=== PATIENT | female | born 1965 | race Caucasian/White ===

== ENCOUNTER 2017-07-04 12:25 | Emergency (ER) | payer OTHER, MEDICAID ==
[2017-07-04 12:34] VITALS: BMI 32.5
--- NOTE | 2017-07-04 13:05 | DR.AMS ---
HPI - Time Seen Time seen: 01:00 - Complaint Cheif Complaint Doctors Comments: Patient was enroute to dialysis when the transport team thought that might be having a stroke because she was not responding to him. He said her pupils were not equal not responding as usual. She no history of prior stroke. Chief Complaint:: [facility] TO TRANSPORT PT AND STATES UPON TAKING PT TO DIALYSIS AND PT BEGAN AMS, NOT ACTING RIGHT ......AND THEY THOUGHT SHE WAS ACTING RIGHT .. Self Treatment fo Chief Complaint: UPON ARRIVAL PT IS ALERT AND ORIENTED AND SHE ANSWERS QUESTIONS APPROPRIATE NO DISTRESS NOTES.... - Source History Provided: Patient, EMS - Mode of Arrival Mode of Arrival: EMS - Timing Onset of Chief Complaint: 07/04/17 PMH - PMH Past Medical History: No Past Medical History: Diabetes, Dialysis, Hypertension, Renal Disease Past Surgical History: Yes Surgical History: Hysterectomy, Ortho Surgery Past Surgical History Comment: RIGHT SHIELDS - Family History History of Family Medical Conditions: No Family Medical History: Diabetes Mellitus, Cancer, [place], Coronary Artery Disease - Social History Does patient currently use any type of tobacco product: No Have you used tobacco products in the last 12 months: No Type of Tobacco Use: None Does any household member use tobacco: No Alcohol Use: None Do you use any recreational Drugs:: No Lives Where: [facility] - infectious screening In the last 2 months have you had wt loss of >10#?: NO Have you had fever, night sweats or hemotysis?: No Have you traveled outside the country in the last 6 months?: No Isolation: Standard ROS - Review of Systems Eyes: No Symptoms Reported ENTM: No Symptoms Reported Respiratoy: No Symptoms Reported Cardiovascular: No Symptoms Reported Gastrointestinal/Abdominal: No Symptoms Reported Genitourinary: No Symptoms Reported Neurological: No Symptoms Reported Musculoskeletal: No Symptoms Reported Integumentary: No Symptoms Reported Hematologic/Lymphatic: No Symptoms Reported Endocrine: No Symptoms Reported Psychiatric: No Symptoms Reported All Other Systems: Reviewed and Negative PE - Vitals Vital Signs: Pulse Resp BP BP BP Pulse Ox 07/04/17 12:26 70 20 151/83 98 11/27/16 14:14 231/107 231/107 11/27/16 13:49 240/123 - General Limitations: No Limitations General Appearance: Alert, In No Apparent Distress - Head Head Exam: Normal Inspection, Atraumatic - Eyes Eye exam: Normal Appearance Pupils: Regular, Round: Bilateral - ENT ENT Exam: Normal Exam, Normal Oropharynx External Ear Exam: Normal External Inspection TM/Canal Exam: Bilateral Normal Nose Exam: Normal Nose Exam Mouth Exam: Normal Inspection Throat Exam: Normal Inspection - Neck Neck Exam: Normal Inspection - Chest Chest Inspection: Normal Inspection - Respiratory Respiratory Exam: Normal Lung Sounds Bilat Respiratory Exam: Bilateral Clear to Auscultation - Cardiovascular Cardiovascular Exam: Regular Rate, Normal Rhythm - Abdominal Exam Abdominal Exam: Normal Inspection Abdominal Tenderness: negative: RUQ, RLQ, LUQ, LLQ, Epigastrium, Suprapubic, Diffuse, Mild, Moderate, Severe, Other - Extremities Extremities Exam: Normal Inspection, Other (BKA right lower extremity) - Back Back Exam: Normal Inspection. negative: (R) CVA Tenderness, (L) CVA Tenderness - Neurological Neurological Exam: Alert, Oriented X3, CN II-XII Intact Patient Oriented To: Person Speech: Fluid Speech - Psychological Psychiatric Exam: Normal Affect - Skin Skin Exam: Warm, Dry, Intact Course - Treatment Treatment: Patient evaluated, responded appropriately to questions, pupils equal and reactive, no deviation of tongue speeck appropriate. - Diagnosis Discharge Problem: Dialysis patient - Discharge Plan Condition: Stable - Follow ups/Referrals Follow ups/Referrals: DERRICK HUNTER [Primary Care Provider] - 3 days - Instructions
[2017-07-04 13:12] VITALS: BP 107/55
== END 2017-07-04 13:12 | disposition home or self-care (01) ==
LOC: ER 12:25
DX: Z99.2 Dependence on renal dialysis (principal)
CPT/HCPCS: 99281

== ENCOUNTER → 2018-02-13 | Outpatient (CLI) | payer OTHER, MEDICAID | LOC: LAB 16:10 | PROVIDERS: ATTEND General Practice | DX: S91.302A Unspecified open wound, left foot, initial encounter (principal); X58.XXXA Exposure to other specified factors, initial encounter; B95.62 Methicillin resistant Staphylococcus aureus infection as the cause of diseases classified elsewhere | CPT/HCPCS: 87070; 87075; 87077; 87186 ==

== ENCOUNTER 2018-07-22 17:04 | Inpatient (IN) ==
--- NOTE | 2018-07-22 17:44 | DR.GENAD ---
HPI Time Seen Time Seen by Provider: 07/22/18 17:12 Complaint/Symptoms Chief Complaint Doctors Comments: Patient was getting her dialysis, had SOB; she was transferred to the ED for further evaluation. She has been on dialysis for one year. PMH PMH Past Medical History: Anemia, Anxiety, CHF, Coronary Artery Disease, Diabetes, Dyslipidemia, GERD, Hypertension, Kidney Stones and Seizures Past Surgical History: Yes Surgical History: Hysterectomy and Ortho Surgery Family History Family Medical History: Diabetes Mellitus, Cancer, [place] and Coronary Artery Disease Social History Do you use any recreational Drugs:: No PE Vital Signs Vitals: Temperature 99.2 F Pulse Rate [Apical] 69 Pulse Rate 69 Respiratory Rate 15 Blood Pressure [Right Arm] 103/57 Blood Pressure [Left Arm] 231/107 Blood Pressure 126/62 O2 Sat by Pulse Oximetry 95 General Limitations: No Limitations General Appearance: Alert and In No Apparent Distress Head Head Exam: Normal Inspection and Atraumatic Eyes Eye exam: Normal Appearance, PERRL and EOMI ENT ENT Exam: Normal Exam and Normal Oropharynx External Ear Exam: Normal External Inspection TM/Canal Exam: Bilateral: Normal Nose Exam: Normal Nose Exam and Sinus Tenderness Mouth Exam: Normal Inspection Throat Exam: Normal Inspection Neck Neck Exam: Normal Inspection and Full ROM Chest Chest Inspection: Normal Inspection and Symmetric Chest Wall Rise Respiratory Respiratory Exam: Normal Lung Sounds Bilat Respiratory Exam: Bilateral: Clear to Auscultation Cardiovascular Cardiovascular Exam: Regular Rate and Normal Rhythm Abdominal Exam Abdominal Exam: Normal Inspection, Normal Bowel Sounds and Soft Extremities Extremities Exam: Normal Inspection and Full ROM Back Back Exam: Normal Inspection and Full ROM Neurologic Neurological Exam: Alert, Oriented X3 and CN II-XII Intact Psychiatric Psychiatric Exam: Normal Affect and Normal Mood Skin Skin Exam: Warm and Dry COURSE Consultation Called: 19:45 Consultation Comments: agreed to admit for further evaluation and treatment ROR Labs Reviewed Laboratory Results Reviewed?: Yes Result Diagrams: 07/22/18 17:43 07/22/18 17:43 Laboratory: WBC 6.1 X10^3/uL (3.6-10.0) 07/22/18 17:43 RBC 2.49 X10^6/uL (3.5-5.4) L 07/22/18 17:43 Hgb 7.9 g/dL (12.0-16.0) L 07/22/18 17:43 Hct 23.0 % (36.0-47.0) L 07/22/18 17:43 MCV 92.4 fL (80.0-100.0) 07/22/18 17:43 MCH 31.6 pg (27.0-34.0) 07/22/18 17:43 MCHC 34.2 g/dL (33.0-35.0) 07/22/18 17:43 RDW 16.3 % (11.6-16.5) 07/22/18 17:43 Plt Count 228 X10^3/uL (150.0-450.0) 07/22/18 17:43 Plt Count Comment Adequate (ADEQUATE) 07/22/18 17:43 MPV 7.7 fL (7.4-11.0) 07/22/18 17:43 Neut % (Auto) 71.2 % (42.0-75.0) 07/22/18 17:43 Lymph % (Auto) 22.7 % (21.0-51.0) 07/22/18 17:43 [place] % (Auto) 5.2 % (0.0-13.0) 07/22/18 17:43 Eos % (Auto) 0.6 % (0.9-2.9) L 07/22/18 17:43 Baso % (Auto) 0.3 % (0.2-1.0) 07/22/18 17:43 Neut # (Auto) 4.3 x10^3/uL (2.2-4.8) 07/22/18 17:43 Lymph # (Auto) 1.4 X10^3/uL (1.3-2.9) 07/22/18 17:43 [place] # (Auto) 0.3 x10^3/uL (0.3-0.8) 07/22/18 17:43 Eos # (Auto) 0.0 x10^3/uL (0.0-0.2) 07/22/18 17:43 Baso # (Auto) 0.0 X10^3/uL (0.0-0.1) 07/22/18 17:43 Absolute Nucleated RBC 0.0 /100WBC 07/22/18 17:43 Plt Morphology Comment Normal (NORMAL) 07/22/18 17:43 RBC Morphology Normal (NORMAL) 07/22/18 17:43 INR Target Range - 07/22/18 17:43 INR 1.19 (0.8-1.3) 07/22/18 17:43 APTT 47.4 SECONDS (22.9-36.5) H 07/22/18 17:43 PTT Comment - 07/22/18 17:43 D-Dimer 2020 ng/mL (0-400) H* 07/22/18 17:43 Sodium 138 mmol/L (136-145) 07/22/18 17:43 Corrected Sodium 139 mmol/L (136-145) 07/22/18 17:43 Potassium 3.4 mmol/L (3.5-5.1) L 07/22/18 17:43 Chloride 98 mmol/L (98-107) 07/22/18 17:43 Carbon Dioxide 31.5 mmol/L (21-32) 07/22/18 17:43 BUN 24 mg/dL (7-18) H 07/22/18 17:43 Creatinine 2.34 mg/dL (0.55-1.02) H 07/22/18 17:43 Est GFR (MDRD) Af Amer 28 (>60) L 07/22/18 17:43 Est GFR (MDRD) Non-Af 23 (>60) L 07/22/18 17:43 Glucose 136 mg/dL (65-99) H 07/22/18 17:43 Calcium 7.1 mg/dL (8.5-10.1) L 07/22/18 17:43 Corrected Calcium 9.0 mg/dL (8.5-10.1) 07/22/18 17:43 Total Bilirubin 0.80 mg/dL (0.2-1.0) 07/22/18 17:43 AST 33 Units/L (15-37) 07/22/18 17:43 ALT 20 Units/L (12-78) 07/22/18 17:43 Alkaline Phosphatase 484 Units/L (46-116) H 07/22/18 17:43 Creatine Kinase 154 Units/L (26-192) 07/22/18 17:43 CK-MB (CK-2) 6.6 ng/mL (0-4.0) H* 07/22/18 17:43 CK/CKMB % Calc 4.3 % (<4) 07/22/18 17:43 Troponin I < 0.02 ng/mL (0-1.5) 07/22/18 17:43 Total Protein 6.3 g/dL (6.4-8.2) L 07/22/18 17:43 Albumin 1.6 g/dL (3.4-5.0) L 07/22/18 17:43 Globulin 4.7 g/dL (2.5-4.5) H 07/22/18 17:43 Albumin/Globulin Ratio 0.3 Ratio (1.1-2.1) L 07/22/18 17:43 Other Results Comments: CT Brain: No acute intraparenchymal hemorrhage or mass can be identified. No extra-axial fluid collections are seen. No alteration in the attenuation of the brain parenchyma can be identified to suggest acute or sub- acute ischemic change. The ventricles, sulci, and cisterns demonstrate an appearance consistent with a mild degree of generalized atrophy. Patchy areas of decreased attenuation within the periventricular, subcortical, and subinsular white matter suggest changes or chronic small vessel ischemic disease. A remote infarct is seen within the right centrum semiovale. If symptoms or clinical concern persist recommend continued follow-up for further evaluation: Impression: No acute intracranial process can be identified. Mild generalized atrophy with findings consistent with changes of chronic small vessel ischemic disease. Remote right-sided infarct. Chest: Right-sided pleural effusion with sub-segmental atelectasis in the right base; otherwise no focal infiltrate can be identified. Cardiomegaly that appear stable compared to prior examination. Diagnosis Discharge Problem: Altered mental status, Dialysis patient, D-dimer, elevated
[2018-07-22 17:51] LABS: BASOPHILS % (AUTO) 0.3 % (0.2-1.0); EOSINOPHILS % (AUTO) 0.6 % (0.9-2.9); HEMOGLOBIN 7.9 g/dL (12.0-16.0); LYMPHOCYTES # (AUTO) 1.4 X10^3/uL (1.3-2.9); LYMPHOCYTES % (AUTO) 22.7 % (21.0-51.0); MEAN CORPUSCULAR HEMOGLOBIN 31.6 pg (27.0-34.0); MEAN CORPUSCULAR HGB CONC 34.2 g/dL (33.0-35.0); MEAN CORPUSCULAR VOLUME 92.4 fL (80.0-100.0); MEAN PLATELET VOLUME 7.7 fL (7.4-11.0); MONOCYTES # (AUTO) 0.3 x10^3/uL (0.3-0.8); MONOCYTES % (AUTO) 5.2 % (0.0-13.0); NEUTROPHILS # (AUTO) 4.3 x10^3/uL (2.2-4.8); NEUTROPHILS % (AUTO) 71.2 % (42.0-75.0); PLATELET COUNT 228 X10^3/uL (150.0-450.0); RED BLOOD COUNT 2.49 X10^6/uL (3.5-5.4); RED CELL DISTRIBUTION WIDTH 16.3 % (11.6-16.5); WHITE BLOOD COUNT 6.1 X10^3/uL (3.6-10.0)
[2018-07-22 17:59] LABS: PLATELET MORPHOLOGY COMMENT NORMAL (NORMAL)
[2018-07-22] MEDS ORDERED: PROVENTIL NEB TX 0.083% 2.5MG/ 3ML NEB ONE (17:59)
[2018-07-22 18:08] LABS: BLOOD UREA NITROGEN 24 mg/dL (7-18); CALCIUM 7.1 mg/dL (8.5-10.1); CARBON DIOXIDE 31.5 mmol/L (21-32); CHLORIDE 98 mmol/L (98-107); COR NA(FOR HYPERGLY) 139 mmol/L (136-145); CREATININE 2.34 mg/dL (0.55-1.02); SODIUM 138 mmol/L (136-145); TROPONIN I < 0.02 ng/mL (0-1.5); eGFR NON BLACK RACES 23 (>60)
[2018-07-22 18:32] LABS: ALANINE AMINOTRANSFERASE 20 Units/L (12-78); ALBUMIN 1.6 g/dL (3.4-5.0); ALKALINE PHOSPHATASE 484 Units/L (46-116); ASPARTATE AMINO TRANSFERASE 33 Units/L (15-37); CKMB % 4.3 % (<4); CREATINE KINASE 154 Units/L (26-192); TOTAL PROTEIN 6.3 g/dL (6.4-8.2)
[2018-07-22 18:33] LABS: CREATINE KINASE MB 6.6 ng/mL (0-4.0)
--- NOTE | 2018-07-22 18:40 | CT ---
HISTORY: Altered mental status Study: CT head Comparison: None Technique: Serial axial images were obtained from the skullbase to the vertex without infusion of IV contrast. Coronal and sagittal reformatted images were also submitted. Findings: The ventricles, sulci, and cisterns demonstrate an appearance consistent with a mild degree of genera lized atrophy. Patchy areas of decreased attenuation within the periventricular, subcortical, and sub insular white matter suggest changes of chronic small vessel ischemic disease. A remote infarct is se en involving the right centrum semiovale. The visualized paranasal sinuses are grossly unremarkable i n appearance. If symptoms or clinical concern persist recommend continued follow-up for further evalu ation. IMPRESSION: No evidence of acute intracranial abnormality is appreciated. Mild generalized atrophy findings consistent with changes of chronic small vessel ischemic disease. Remote infarct involving the right centrum semiovale. Reported By:
--- NOTE | 2018-07-22 18:49 | RAD ---
HISTORY: Altered level of consciousness, confusion Study: Single-view chest Comparison: 06/05/2018 Findings: The trachea is midline. The cardiac silhouette is enlarged with a tortuous thoracic aorta. Pacing de vice overlying the left chest is observed with leads stable in position. A right-sided pleural effus ion with associated subsegmental atelectasis is again observed not significantly changed compared to prior examination. Otherwise, no focal infiltrate can be identified. The bony thorax is unremarkable . IMPRESSION: Right-sided pleural effusion with subsegmental atelectasis in the right base. Otherwise, no focal inf iltrate can be identified. Cardiomegaly that appear stable compared to prior examination. Reported By:
[2018-07-22] MEDS ORDERED: ROBITUSSIN DM PO PRN (20:04)
[2018-07-22] MEDS ORDERED: ULTRAM PO PRN (20:04)
[2018-07-22] MEDS ORDERED: AMBIEN PO PRN (20:04)
[2018-07-22] MEDS ORDERED: PHENERGAN INJ 25 MG IV PRN (20:04)
[2018-07-22] MEDS ORDERED: TYLENOL 325 MG TAB PO PRN (20:04)
[2018-07-22] MEDS ORDERED: MORPHINE SULFATE INJ 2 MG INJ IVP PRN (20:04)
[2018-07-22] MEDS ORDERED: ZOFRAN TAB 4 MG SL PRN (20:04)
[2018-07-22] MEDS: NS 1000 ML 1,000 ML IV SCH (20:42)
[2018-07-22] MEDS ORDERED: PEPTO-BISMOL ORAL SUSP BTL PO PRN (20:53)
[2018-07-22] MEDS ORDERED: PATIENT'S HOME MEDICATION (Insulin Aspart [Novolog Insulin 10 Ml Vial] 1 UNIT) SUBCUT PRN (20:53)
[2018-07-22] MEDS ORDERED: CLONAZEPAM PO SCH (21:00)
[2018-07-22] MEDS ORDERED: HumuLIN R SUBCUT PRN (22:20)
[2018-07-22 22:54] VITALS: BMI 23.9
[2018-07-23 05:24] LABS: ALANINE AMINOTRANSFERASE 20 Units/L (12-78); ALBUMIN 1.4 g/dL (3.4-5.0); ALKALINE PHOSPHATASE 448 Units/L (46-116); ASPARTATE AMINO TRANSFERASE 38 Units/L (15-37); BLOOD UREA NITROGEN 32 mg/dL (7-18); CALCIUM 7.2 mg/dL (8.5-10.1); CARBON DIOXIDE 27.1 mmol/L (21-32); CHLORIDE 100 mmol/L (98-107); COR CA(FOR HYPOALB) 9.3 mg/dL (8.5-10.1); CREATININE 2.69 mg/dL (0.55-1.02); SODIUM 138 mmol/L (136-145); TOTAL PROTEIN 5.8 g/dL (6.4-8.2); eGFR NON BLACK RACES 20 (>60)
[2018-07-23 05:31] LABS: BASOPHILS % (AUTO) 0.6 % (0.2-1.0); EOSINOPHILS % (AUTO) 0.1 % (0.9-2.9); HEMATOCRIT 22.2 % (36.0-47.0); HEMOGLOBIN 7.6 g/dL (12.0-16.0); LYMPHOCYTES # (AUTO) 1.6 X10^3/uL (1.3-2.9); LYMPHOCYTES % (AUTO) 24.9 % (21.0-51.0); MEAN CORPUSCULAR HEMOGLOBIN 31.4 pg (27.0-34.0); MEAN CORPUSCULAR VOLUME 92.2 fL (80.0-100.0); MEAN PLATELET VOLUME 8.5 fL (7.4-11.0); MONOCYTES # (AUTO) 0.6 x10^3/uL (0.3-0.8); MONOCYTES % (AUTO) 8.3 % (0.0-13.0); NEUTROPHILS # (AUTO) 4.4 x10^3/uL (2.2-4.8); NEUTROPHILS % (AUTO) 66.1 % (42.0-75.0); PLATELET COUNT 186 X10^3/uL (150.0-450.0); RED BLOOD COUNT 2.41 X10^6/uL (3.5-5.4); RED CELL DISTRIBUTION WIDTH 15.6 % (11.6-16.5); WHITE BLOOD COUNT 6.6 X10^3/uL (3.6-10.0)
[2018-07-23] MEDS ORDERED: DUONEB 0.5 MG/3 MG NEB SCH (06:00)
[2018-07-23 06:14] LABS: HYPOCHROMASIA SLIGHT; PLATELET MORPHOLOGY COMMENT NORMAL (NORMAL)
[2018-07-23] MEDS: NEURONTIN TAB 600 MG PO SCH ×4 (06:16→21:24)
[2018-07-23 06:33] LABS: ABG BASE EXCESS 10.2 mmol/L (-2.0-2.0)
[2018-07-23] MEDS: NS 1000 ML 1,000 ML IV SCH ×2 (06:33→21:47)
[2018-07-23 06:34] LABS: ABG HCO3 35.6 mmol/L (22-26); FRACTIONATED INSPIRED OXYGEN 31
[2018-07-23] MEDS: NORVASC TAB 10 MG PO SCH (08:34)
[2018-07-23] MEDS: KLONOPIN TAB 0.5 MG PO SCH ×3 (08:34→21:23)
[2018-07-23] MEDS: CATAPRES TAB 0.2 MG PO SCH ×3 (08:34→21:23)
[2018-07-23] MEDS: PROTONIX TAB 40 MG PO SCH (08:35)
[2018-07-23] MEDS ORDERED: AMLODIPINE BESYLATE 10 MG PO SCH (09:00)
[2018-07-23] MEDS: DUONEB 0.5 MG/3 MG NEB SCH ×4 (10:00→20:10)
[2018-07-23] MEDS ORDERED: DUONEB 0.5 MG/3 MG ONE (10:08)
[2018-07-23] MEDS ORDERED: ATIVAN TAB 1 MG PO PRN (10:30)
[2018-07-23] MEDS ORDERED: MILK OF MAGNESIA PO PRN (10:30)
[2018-07-23] MEDS ORDERED: BENADRYL CAP/TAB 25 MG PO PRN (10:30)
[2018-07-23] MEDS ORDERED: DULCOLAX TAB EC 5 MG PO PRN (10:30)
[2018-07-23] MEDS ORDERED: NORCO 10/325 TAB PO PRN (10:30)
[2018-07-23] MEDS ORDERED: CARBOXYMETHYLCELLULOSE SODIUM OP PRN (10:30)
[2018-07-23] MEDS ORDERED: PATIENT'S HOME MEDICATION (Ferrous Sulfate [Ferrous Sulfate] 325 MG) PO SCH (10:45)
[2018-07-23] MEDS ORDERED: SEVELAMER CARBONATE 800 MG PO SCH (10:45)
[2018-07-23] MEDS ORDERED: [UNRECOGNIZED DRUG - OTHER] PO SCH (10:45)
[2018-07-23] MEDS ORDERED: VIT B COMPLEX PO SCH (10:45)
[2018-07-23] MEDS: MINOXIDIL PO SCH ×2 (11:26→21:23)
[2018-07-23] MEDS: VITAMIN C PO SCH (11:27)
[2018-07-23] MEDS: COLACE CAP 100 MG PO SCH ×2 (11:27→21:23)
[2018-07-23] MEDS: RANEXA PO SCH ×2 (11:27→21:23)
[2018-07-23] MEDS: KEPPRA TAB 500 MG PO SCH ×2 (11:27→21:23)
[2018-07-23] MEDS: LYRICA CAP 100 MG PO SCH (11:27)
[2018-07-23] MEDS: RENAGEL PO SCH ×2 (13:55→18:00)
[2018-07-23] MEDS ORDERED: PROVENTIL NEB TX 0.083% 2.5MG/ 3ML NEB PRN (14:51)
--- NOTE | 2018-07-23 19:19 | DR.H&P ---
H&P - History & Physical for Day of: H&P Date: 07/22/18 - Chief Complaint Chief Complaint: WEAKNESS, SHORT OF BREATH - History of Present Illness History of Present Illness: IS A 53 YEAR OLD RESIDENT OF [facility] IN [place], [place]. SHE PRESENTED TO THE ER FROM DIALYSIS WITH REPORTS OF WEAKNESS AND SHORTNESS OF BREATH. SHE REPORTS BECOMING SHORT OF BREATH WHILE SHE WAS RECEIVING DIALYSIS. SHE DENIES COUGH OR FEVER. PAST MEDICAL HISTORY INCLCUDES ANEMIA, ANXIETY, CHF, CAD, DM, DYSLIPIDEMIA, GERD, HTN, KIDNEY DISEASE, SEIZURES. ON ARRIVAL, VITALS WERE 99.2-69-20-97%-126/62. LABS WERE OBTAINED. ABNORMAL LAB VALUES INCLUDE THE FOLLOWING: RBC 2.49, HGB 7.9, HCT 23.0, D-DIMER 2020, POTASSIUM 3.4, BUN 24, CREATININE 2.34, GLUCOSE 136, CALCIUM 7.1, ALK PHOS 484, CK-MB 6.6, TOTAL PROTEIN 6.3, ALBUMIN 1.6. ABG WAS OBTAINED AND REVEALED: PH 7.460, PC02 50.0, P02 68.0, HC03 35.6, BASE EXCESS 10.2. A BRAIN CT WAS OBTAINED AND REVEALED: No acute intracranial process can be identified. Mild generalized atrophy with findings consistent with changes of chronic small vessel ischemic disease. Remote right-sided infarct as noted above. A CHEST XRAY WAS OBTAINED AND REVEALED: Right-sided pleural effusion with subsegmental atelectasis in the right base. Otherwise, no focal infiltrate can be identified. Cardiomegaly that appear stable compared to prior examination. EKG REVEALED: SINUS RHYTHM WITH HR 69. SHE WAS ADMITTED TO THE HOSPITAL FOR FURTHER EVALUATION AND TREATMENT OF DYSPNEA, ELEVATED D-DIMER, AND RENAL FAILURE. SHE WAS STARTED ON NEB TX, NORMAL SALINE AT 75ML/HR, AND SLIDING SCALE INSULIN. WE PLAN TO FOLLOW UP WITH AM LABS AND CONTINUE TO MONITOR PATIENT. - Past Medical History Past Medical History: Coronary Artery Disease, Hypertension, Dyslipidemia, Diabetes, Anxiety, Anemia, Seizures, GERD, Kidney Stones, CHF - Past Surgical History Surgical History: Hysterectomy, Ortho Surgery - Family History Family Medical History: Diabetes Mellitus, Cancer, [place], Coronary Artery Disease, Hypertension - Social History Does any household member use tobacco: No Alcohol Use: None Drug Use: None - Medications Home Medications: No Known Drug Allergies Allergy (Verified 05/31/18 11:40) CONTINUE taking the following medications acetaminophen 20 ml PO Q4H PRN 07/22/18 [History] acetaminophen [Acephen] 650 mg [place] Q4H PRN 07/22/18 [History] albuterol sulfate 1 amp INHALATION Q4H PRN 07/22/18 [History] amlodipine 5 mg PO DAILY 07/22/18 [History] ascorbic acid (vitamin C) 500 mg PO DAILY 07/22/18 [History] aspirin 81 mg PO DAILY 07/22/18 [History] atorvastatin 40 mg PO HS 07/22/18 [History] bisacodyl [Dulcolax (bisacodyl)] 10 mg PO DAILY PRN 07/22/18 [History] bisacodyl [Dulcolax (bisacodyl)] 10 mg [place] DAILY PRN 07/22/18 [History] carboxymethylcellulose sodium [Lubricant Eye Drops] 2 drp OPHTHALMIC (EYE) QID PRN 07/22/18 [History] clonidine HCl 0.3 mg PO QID 07/22/18 [History] clopidogrel 75 mg PO DAILY 07/22/18 [History] diphenhydramine HCl [Benadryl] 25 mg PO Q6H PRN 07/22/18 [History] docusate sodium [Colace] 100 mg PO BID 07/22/18 [History] furosemide 80 mg PO DAILY 07/22/18 [History] hydralazine 100 mg PO TID 07/22/18 [History] hydrocodone-acetaminophen 1 tab PO Q4H PRN 07/22/18 [History] insulin lispro [Humalog U-100 Insulin] 1 inj SUBCUT ACHS PRN 07/22/18 [History] ipratropium-albuterol 1 ea INHALATION Q6H PRN 07/22/18 [History] isosorbide mononitrate 20 mg PO DAILY 07/22/18 [History] lorazepam 1 mg PO Q6H PRN 07/22/18 [History] magnesium hydroxide [Milk of Magnesia] 30 ml PO DAILY PRN 07/22/18 [History] metoprolol succinate 25 mg PO DAILY 07/22/18 [History] minoxidil 10 mg PO BID 07/22/18 [History] ondansetron HCl 8 mg PO Q8H PRN 07/22/18 [History] pantoprazole 40 mg PO BID 07/22/18 [History] pregabalin [Lyrica] 100 mg PO DAILY 07/22/18 [History] ranolazine [Ranexa] 500 mg PO BID 07/22/18 [History] sevelamer carbonate 800 mg PO TID 07/22/18 [History] vit B complex with C #[id number] 1 tab PO DAILY 07/22/18 [History] acetaminophen 650 mg PO Q4H PRN 07/23/18 [History] ferrous sulfate 325 mg PO BID 07/23/18 [History] levetiracetam [Keppra] 500 mg PO BID 07/23/18 [History] - Review of Systems Constitutional: Weakness Eyes: No Symptoms Reported ENT: No Symptoms Reported Respiratory: Shortness of Breath, SOB with Excertion. denies: Cough Cardiovascular: No Symptoms Reported Gastrointestinal: No Symptoms Reported Genitourinary: No Symptoms Reported Musculoskeletal: No Symptoms Reported Skin: No Symptoms Reported Neurological: Weakness - Physical Exam Vital Signs: Temperature 98.9 F Pulse Rate [Apical] 84 Pulse Rate 84 Respiratory Rate 20 Blood Pressure [Right Arm] 166/78 Blood Pressure [Left Arm] 231/107 Blood Pressure 126/62 O2 Sat by Pulse Oximetry 96 Oriented: Normal Eyes: Normal Ear: Normal Nose: Normal Throat: Normal Respiratory: Diminished Throughout Cardiovascular: Normal, Edema (BLE TRACE EDEMA ). negative: S3, S4 : Normal Auscultation: Bowel Sounds: Normal Palpation: Normal Tenderness: Normal Skin: Normal Musculoskeletal: Normal Psychiatric: Normal Mood Description: Calm Affect: Normal Speech Pattern: Clear - Assessment/Plan (1) Dyspnea Qualifiers: Dyspnea type: shortness of breath Qualified Code(s): R06.02 - Shortness of breath; R06.00 - Dyspnea, unspecified; R06.01 - Orthopnea Status: Acute Plan: RESPIRATORY TREATMENTS, SUPPLEMENTAL OXYGEN, CONTINUE TO MONITOR (2) Shortness of breath Status: Acute (3) End-stage renal disease (ESRD) Status: Acute Plan: DIALYSIS ON M,W,F, CONTINUE TO MONITOR - Allergies Allergies/Adverse Reactions: Allergies Allergy/AdvReac Type Severity Reaction Status Date / Time No Known Drug Allergies Allergy Verified 05/31/18 11:40
[2018-07-23] MEDS: SNACK - Diabetic Appropriate PO SCH (20:24)
[2018-07-23] MEDS: LIPITOR TAB 10 MG PO SCH ×2 (21:23)
[2018-07-23] MEDS: FERROUS GLUCONATE PO SCH (21:23)
[2018-07-24] MEDS: DUONEB 0.5 MG/3 MG NEB SCH ×7 (00:34→20:38)
[2018-07-24] MEDS: NS 1000 ML 1,000 ML IV SCH ×3 (04:15→22:06)
[2018-07-24 05:28] LABS: ALANINE AMINOTRANSFERASE 20 Units/L (12-78); ALBUMIN 1.5 g/dL (3.4-5.0); ALKALINE PHOSPHATASE 520 Units/L (46-116); ASPARTATE AMINO TRANSFERASE 29 Units/L (15-37); BLOOD UREA NITROGEN 46 mg/dL (7-18); CALCIUM 7.4 mg/dL (8.5-10.1); CARBON DIOXIDE 28.8 mmol/L (21-32); CHLORIDE 97 mmol/L (98-107); COR CA(FOR HYPOALB) 9.4 mg/dL (8.5-10.1); CREATININE 3.57 mg/dL (0.55-1.02); SODIUM 135 mmol/L (136-145); TOTAL PROTEIN 6.4 g/dL (6.4-8.2); eGFR NON BLACK RACES 14 (>60)
[2018-07-24 05:29] LABS: BASOPHILS % (AUTO) 0.4 % (0.2-1.0); HEMATOCRIT 23.2 % (36.0-47.0); HEMOGLOBIN 7.8 g/dL (12.0-16.0); LYMPHOCYTES # (AUTO) 1.9 X10^3/uL (1.3-2.9); LYMPHOCYTES % (AUTO) 24.5 % (21.0-51.0); MEAN CORPUSCULAR HEMOGLOBIN 31.3 pg (27.0-34.0); MEAN CORPUSCULAR HGB CONC 33.6 g/dL (33.0-35.0); MEAN PLATELET VOLUME 7.8 fL (7.4-11.0); MONOCYTES # (AUTO) 0.6 x10^3/uL (0.3-0.8); MONOCYTES % (AUTO) 7.7 % (0.0-13.0); NEUTROPHILS # (AUTO) 5.3 x10^3/uL (2.2-4.8); NEUTROPHILS % (AUTO) 67.4 % (42.0-75.0); PLATELET COUNT 249 X10^3/uL (150.0-450.0); RED CELL DISTRIBUTION WIDTH 15.9 % (11.6-16.5); WHITE BLOOD COUNT 7.9 X10^3/uL (3.6-10.0)
[2018-07-24] MEDS: NEURONTIN TAB 600 MG PO SCH ×3 (05:32→21:53)
[2018-07-24 05:41] LABS: HYPOCHROMASIA SLIGHT; PLATELET MORPHOLOGY COMMENT NORMAL (NORMAL)
--- NOTE | 2018-07-24 07:19 | RAD ---
HISTORY: Shortness of breath Study: Chest AP portable Comparison: 07/22/2018 Findings: There is a pacemaker present on the left obscuring a portion of the left mid lung. The heart remains enlarged. No congestive heart failure is noted. Decreasing right pleural effusion and better inflatio n of the right lower lobe is identified. The right upper lung field and left lung are clear. A left p leural effusion is likely present. The bony thorax is unremarkable. IMPRESSION: Persistent cardiomegaly without definite congestive heart failure Improving right pleural effusion and better inflation of the right lower lobe when compared with the prior examination Left pleural effusion Reported By:
[2018-07-24] MEDS: RENAGEL PO SCH ×3 (08:50→17:22)
[2018-07-24] MEDS: MINOXIDIL PO SCH ×2 (09:30→21:53)
[2018-07-24] MEDS: COLACE CAP 100 MG PO SCH ×2 (09:30→22:08)
[2018-07-24] MEDS: RANEXA PO SCH ×2 (09:30→21:53)
[2018-07-24] MEDS: VITAMIN C PO SCH (09:30)
[2018-07-24] MEDS: PROTONIX TAB 40 MG PO SCH (09:30)
[2018-07-24] MEDS: KEPPRA TAB 500 MG PO SCH ×2 (09:30→21:53)
[2018-07-24] MEDS: LYRICA CAP 100 MG PO SCH (09:30)
[2018-07-24 09:31] LABS: ABG BASE EXCESS 6.1 mmol/L (-2.0-2.0)
[2018-07-24] MEDS: KLONOPIN TAB 0.5 MG PO SCH ×2 (09:31→21:53)
[2018-07-24] MEDS: FERROUS GLUCONATE PO SCH ×2 (09:31→21:53)
[2018-07-24] MEDS: CATAPRES TAB 0.2 MG PO SCH ×2 (09:31→21:53)
[2018-07-24] MEDS: NORVASC TAB 10 MG PO SCH (09:31)
[2018-07-24 09:32] LABS: ABG ALLEN TEST POS; ABG HCO3 31.2 mmol/L (22-26); FRACTIONATED INSPIRED OXYGEN 30
--- NOTE | 2018-07-24 16:12 | PCM.PROG ---
Progress Note - Progress Note for Day of Date of Exam: 07/23/18 - Subjective Subjective: WAS ADMITTED YESTERDAY FOR COMPLAINTS OF SHORTNESS OF BREATH. TODAY, SHE IS ALERT AND ORIENTED, LYING IN BED ON MORNING ROUNDS. SHE CONTINUES WITH COMPLAINTS OF SHORTNESS OF BREATH. PATIENT REPORTS THAT SYMPTOMS STARTED WHILE SHE WAS RECEIVING DIALYSIS. SHE DENIES COUGH OR FEVER. ON EXAMINATION, HEART IS REGULAR IN RATE AND RHYTHM. BILATERAL LUNGS ARE NOTED WITH DIMINISHED LUNG SOUNDS THROUGHOUT. ABDOMEN IS ROUND, SOFT, AND NON-TENDER WITH NORMAL BOWEL SOUNDS NOTED IN ALL QUADRANTS. SHE IS NOTED WITH A RIGHT BELOW THE KNEE AMPUTATION, LEFT LEG NOTED WITH TRACE EDEMA. HER VITALS THIS MORNING ARE 98.6-74-20-100%-102/51. LABS WERE OBTAINED. ABNORMAL LAB VALUES INCLUDE THE FOL LOWING: RBC 2.41, HGB 7.6, HCT 22.2, D-DIMER 2020, BUN 32, CREATININE 2.69, GLUCOSE 103, CALCIUM 7.2, ALK PHOS 448, TOTAL PROTEIN 5.8, ALBUMIN 1.4. ABG REVEALED PH 7.460, PC02 50.0, P02 68.0, HC03 35.6, BASE EXCESS 10.2. CHEST XRAY ON ADMISSION REVEALED A RIGHT SIDED PLEURAL EFFUSION WITH SUBSEGMENTAL ATELECTASIS IN THE RIGHT BASE. SHE IS CURRENTLY RECEIVING NORMAL SAINE AT 75ML/HR, NEB TX, AND HOME MEDICATIONS WERE RESUMED. TODAY, WE WILL HOLD HER BLOOD PRESSURE MEDICATIONS DUE TO HYPOTENSION. WE WILL ORDER FOR HER TO WEAR THE CPAP THROUGHOUT THE DAY. OTHERWISE, WE WILL FOLLOW UP WITH AM LABS AND CHEST XRAY AND CONTINUE TO MONITOR PATIENT. - Past Medical Family Social History Past Med/Fam/Surg Hx: No changes since H&P Allergies: Allergies No Known Drug Allergies Allergy (Verified 05/31/18 11:40) - Review of Systems ROS: No change since H&P - Vital Signs and I&O's Vital Signs: Temperature 98.2 F Pulse Rate [Apical] 83 Pulse Rate 60 Respiratory Rate 20 Blood Pressure [Right Arm] 135/68 Blood Pressure [Left Arm] 231/107 Blood Pressure 126/62 O2 Sat by Pulse Oximetry 96 Intake and Output: Intake & Output 07/22/18 07/23/18 07/24/18 07/25/18 11:59 11:59 11:59 11:59 Intake Total 240 / 240 1240 / 1240 100 / 100 Balance 240 / 240 1240 / 1240 100 / 100 - Physical Exam Oriented: Normal Eyes: Normal Ear: Normal Nose: Normal Throat: Normal Respiratory: Generalized, Diminished Cardiovascular: Normal, Edema (LLE TRACE EDEMA ). negative: S3, S4 : Normal Auscultation: Bowel Sounds: Normal Palpation: Normal Tenderness: Normal Skin: Normal Musculoskeletal: Normal Psychiatric: Normal Mood Description: Calm Affect: Normal Speech Pattern: Clear, Appropriate - Laboratory and Diagnostics Result Diagrams: 07/24/18 04:30 07/24/18 04:30 Labs: Laboratory WBC 7.9 X10^3/uL (3.6-10.0) 07/24/18 04:30 RBC 2.50 X10^6/uL (3.5-5.4) L 07/24/18 04:30 Hgb 7.8 g/dL (12.0-16.0) L 07/24/18 04:30 Hct 23.2 % (36.0-47.0) L 07/24/18 04:30 MCV 93.0 fL (80.0-100.0) 07/24/18 04:30 MCH 31.3 pg (27.0-34.0) 07/24/18 04:30 MCHC 33.6 g/dL (33.0-35.0) 07/24/18 04:30 RDW 15.9 % (11.6-16.5) 07/24/18 04:30 Plt Count 249 X10^3/uL (150.0-450.0) 07/24/18 04:30 Plt Count Comment Adequate (ADEQUATE) 07/24/18 04:30 MPV 7.8 fL (7.4-11.0) 07/24/18 04:30 Neut % (Auto) 67.4 % (42.0-75.0) 07/24/18 04:30 Lymph % (Auto) 24.5 % (21.0-51.0) 07/24/18 04:30 [place] % (Auto) 7.7 % (0.0-13.0) 07/24/18 04:30 Eos % (Auto) 0.0 % (0.9-2.9) L 07/24/18 04:30 Baso % (Auto) 0.4 % (0.2-1.0) 07/24/18 04:30 Neut # (Auto) 5.3 x10^3/uL (2.2-4.8) H 07/24/18 04:30 Lymph # (Auto) 1.9 X10^3/uL (1.3-2.9) 07/24/18 04:30 [place] # (Auto) 0.6 x10^3/uL (0.3-0.8) 07/24/18 04:30 Eos # (Auto) 0.0 x10^3/uL (0.0-0.2) 07/24/18 04:30 Baso # (Auto) 0.0 X10^3/uL (0.0-0.1) 07/24/18 04:30 Absolute Nucleated RBC 0.1 /100WBC 07/24/18 04:30 Plt Morphology Comment Normal (NORMAL) 07/24/18 04:30 RBC Morphology Abnormal (NORMAL) A 07/24/18 04:30 Hypochromasia Slight A 07/24/18 04:30 INR Target Range - 07/22/18 17:43 INR 1.19 (0.8-1.3) 07/22/18 17:43 APTT 47.4 SECONDS (22.9-36.5) H 07/22/18 17:43 PTT Comment - 07/22/18 17:43 D-Dimer 2020 ng/mL (0-400) H* 07/22/18 17:43 Sample Site Rrad 07/24/18 09:20 ABG pH 7.440 (7.35-7.45) 07/24/18 09:20 ABG pCO2 46.0 mmHg (35.0-45.0) H 07/24/18 09:20 ABG pO2 66.0 mmHg (80.0-100.0) L 07/24/18 09:20 ABG HCO3 31.2 mmol/L (22-26) H* 07/24/18 09:20 ABG O2 Saturation 93.0 % (90-100) 07/24/18 09:20 ABG Base Excess 6.1 mmol/L (-2.0-2.0) H 07/24/18 09:20 Daniel Test Pos 07/24/18 09:20 A-a Gradient 90.0 mmHg 07/24/18 09:20 FiO2 30 07/24/18 09:20 Blood Gas Comments Eboni well ah 07/24/18 09:20 Sodium 135 mmol/L (136-145) L 07/24/18 04:30 Corrected Sodium TNP 07/24/18 04:30 Potassium 4.5 mmol/L (3.5-5.1) 07/24/18 04:30 Chloride 97 mmol/L (98-107) L 07/24/18 04:30 Carbon Dioxide 28.8 mmol/L (21-32) 07/24/18 04:30 BUN 46 mg/dL (7-18) H 07/24/18 04:30 Creatinine 3.57 mg/dL (0.55-1.02) H 07/24/18 04:30 Est GFR (MDRD) Af Amer 17 (>60) L 07/24/18 04:30 Est GFR (MDRD) Non-Af 14 (>60) L 07/24/18 04:30 Glucose 104 mg/dL (65-99) H 07/24/18 04:30 POC Glucose (mg/dL) 109 mg/dL (65-99) H 07/24/18 05:35 Calcium 7.4 mg/dL (8.5-10.1) L 07/24/18 04:30 Corrected Calcium 9.4 mg/dL (8.5-10.1) 07/24/18 04:30 Total Bilirubin 0.60 mg/dL (0.2-1.0) 07/24/18 04:30 AST 29 Units/L (15-37) 07/24/18 04:30 ALT 20 Units/L (12-78) 07/24/18 04:30 Alkaline Phosphatase 520 Units/L (46-116) H 07/24/18 04:30 Creatine Kinase 154 Units/L (26-192) 07/22/18 17:43 CK-MB (CK-2) 6.6 ng/mL (0-4.0) H* 07/22/18 17:43 CK/CKMB % Calc 4.3 % (<4) 07/22/18 17:43 Troponin I < 0.02 ng/mL (0-1.5) 07/22/18 17:43 Total Protein 6.4 g/dL (6.4-8.2) 07/24/18 04:30 Albumin 1.5 g/dL (3.4-5.0) L 07/24/18 04:30 Globulin 4.9 g/dL (2.5-4.5) H 07/24/18 04:30 Albumin/Globulin Ratio 0.3 Ratio (1.1-2.1) L 07/24/18 04:30 - Plan (1) Dyspnea Status: Acute Qualifiers: Dyspnea type: shortness of breath Qualified Code(s): R06.02 - Shortness of breath; R06.00 - Dyspnea, unspecified; R06.01 - Orthopnea Plan: CPAP, RESPIRATORY TREATMENTS, SUPPLEMENTAL OXYGEN, CONTINUE TO MONITOR (2) Pleural effusion Status: Acute Plan: NEB TX, CPAP, SUPPLEMENTAL OXYGEN, CONTINUE TO MONITOR (3) End-stage renal disease (ESRD) Status: Acute Plan: DIALYSIS ON M,W,F, CONTINUE TO MONITOR
--- NOTE | 2018-07-24 16:36 | PCM.PROG ---
Progress Note - Progress Note for Day of Date of Exam: 07/24/18 - Subjective Subjective: WAS ADMITTED ON 07/22/18 FOR COMPLAINTS OF SHORTNESS OF BREATH. TODAY, SHE IS ALERT AND ORIENTED, LYING IN BED ON MORNING ROUNDS. SHE CONTINUES WITH COMPLAINTS OF SHORTNESS OF BREATH, BUT REPORTS SLIGHT IMPROVEMENT SINCE YESTERDAY. ON EXAMINATION, HEART IS REGULAR IN RATE AND RHYTHM. BILATERAL LUNGS ARE NOTED WITH DIMINISHED LUNG SOUNDS THROUGHOUT. ABDOMEN IS ROUND, SOFT, AND NON-TENDER WITH NORMAL BOWEL SOUNDS NOTED IN ALL QUADRANTS. SHE IS NOTED WITH A RIGHT BELOW THE KNEE AMPUTATION, LEFT LEG NOTED WITH TRACE EDEMA. HER VITALS THIS MORNING ARE 98.2-83-20-99%-135/68. LABS WERE OBTAINED. ABNORMAL LAB VALUES INCLUDE THE FOLLOWING: RBC 2.50, RBC 7.8, HCT 23.2, SODIUM 135, CHLORIDE 97, BUN 46, CREATININE 3.57, GLUCOSE 104, CALCIUM 7.4, ALK PHOS 520, ALBUMIN 1.5. ABG REVEALED: PH 7.440, PC02 46.0, P02 66.0, HC03 31.2, BASE EXCESS 6.1. TODAYS CHEST XRAY REVEALED: Persistent cardiomegaly without definite congestive heart failure. Improving right pleural effusion and better inflation of the right lower lobe when compared with the prior examination. Left pleural effusion. SHE IS CURRENTLY RECEIVING NORMAL SAINE AT 75ML/HR, NEB TX, AND IS UTILIZING THE CPAP. TODAY, SHE WILL RECEIVE DIALYSIS AND THEN RETURN TO THE HOSPITAL. WE WILL CONTINUE WITH CURRENT PLAN OF CARE TODAY. OTHERWISE, WE WILL FOLLOW UP WITH AM LABS AND CHEST XRAY AND CONTINUE TO MONITOR PATIENT. - Past Medical Family Social History Past Med/Fam/Surg Hx: No changes since H&P Allergies: Allergies No Known Drug Allergies Allergy (Verified 05/31/18 11:40) - Review of Systems ROS: No change since H&P - Vital Signs and I&O's Vital Signs: Temperature 98.2 F Pulse Rate [Apical] 83 Pulse Rate 60 Respiratory Rate 20 Blood Pressure [Right Arm] 135/68 Blood Pressure [Left Arm] 231/107 Blood Pressure 126/62 O2 Sat by Pulse Oximetry 96 Intake and Output: Intake & Output 07/22/18 07/23/18 07/24/18 07/25/18 11:59 11:59 11:59 11:59 Intake Total 240 / 240 1240 / 1240 100 / 100 Balance 240 / 240 1240 / 1240 100 / 100 - Physical Exam Oriented: Normal Eyes: Normal Ear: Normal Nose: Normal Throat: Normal Respiratory: Generalized, Diminished Cardiovascular: Normal, Edema (LLE TRACE EDEMA ). negative: S3, S4 : Normal Auscultation: Bowel Sounds: Normal Palpation: Normal Tenderness: Normal Skin: Normal Musculoskeletal: Normal Psychiatric: Normal Mood Description: Calm Affect: Normal Speech Pattern: Clear, Appropriate - Laboratory and Diagnostics Result Diagrams: 07/24/18 04:30 07/24/18 04:30 Labs: Laboratory WBC 7.9 X10^3/uL (3.6-10.0) 07/24/18 04:30 RBC 2.50 X10^6/uL (3.5-5.4) L 07/24/18 04:30 Hgb 7.8 g/dL (12.0-16.0) L 07/24/18 04:30 Hct 23.2 % (36.0-47.0) L 07/24/18 04:30 MCV 93.0 fL (80.0-100.0) 07/24/18 04:30 MCH 31.3 pg (27.0-34.0) 07/24/18 04:30 MCHC 33.6 g/dL (33.0-35.0) 07/24/18 04:30 RDW 15.9 % (11.6-16.5) 07/24/18 04:30 Plt Count 249 X10^3/uL (150.0-450.0) 07/24/18 04:30 Plt Count Comment Adequate (ADEQUATE) 07/24/18 04:30 MPV 7.8 fL (7.4-11.0) 07/24/18 04:30 Neut % (Auto) 67.4 % (42.0-75.0) 07/24/18 04:30 Lymph % (Auto) 24.5 % (21.0-51.0) 07/24/18 04:30 [place] % (Auto) 7.7 % (0.0-13.0) 07/24/18 04:30 Eos % (Auto) 0.0 % (0.9-2.9) L 07/24/18 04:30 Baso % (Auto) 0.4 % (0.2-1.0) 07/24/18 04:30 Neut # (Auto) 5.3 x10^3/uL (2.2-4.8) H 07/24/18 04:30 Lymph # (Auto) 1.9 X10^3/uL (1.3-2.9) 07/24/18 04:30 [place] # (Auto) 0.6 x10^3/uL (0.3-0.8) 07/24/18 04:30 Eos # (Auto) 0.0 x10^3/uL (0.0-0.2) 07/24/18 04:30 Baso # (Auto) 0.0 X10^3/uL (0.0-0.1) 07/24/18 04:30 Absolute Nucleated RBC 0.1 /100WBC 07/24/18 04:30 Plt Morphology Comment Normal (NORMAL) 07/24/18 04:30 RBC Morphology Abnormal (NORMAL) A 07/24/18 04:30 Hypochromasia Slight A 07/24/18 04:30 INR Target Range - 07/22/18 17:43 INR 1.19 (0.8-1.3) 07/22/18 17:43 APTT 47.4 SECONDS (22.9-36.5) H 07/22/18 17:43 PTT Comment - 07/22/18 17:43 D-Dimer 2020 ng/mL (0-400) H* 07/22/18 17:43 Sample Site Rrad 07/24/18 09:20 ABG pH 7.440 (7.35-7.45) 07/24/18 09:20 ABG pCO2 46.0 mmHg (35.0-45.0) H 07/24/18 09:20 ABG pO2 66.0 mmHg (80.0-100.0) L 07/24/18 09:20 ABG HCO3 31.2 mmol/L (22-26) H* 07/24/18 09:20 ABG O2 Saturation 93.0 % (90-100) 07/24/18 09:20 ABG Base Excess 6.1 mmol/L (-2.0-2.0) H 07/24/18 09:20 Daniel Test Pos 07/24/18 09:20 A-a Gradient 90.0 mmHg 07/24/18 09:20 FiO2 30 07/24/18 09:20 Blood Gas Comments Eboni well ah 07/24/18 09:20 Sodium 135 mmol/L (136-145) L 07/24/18 04:30 Corrected Sodium TNP 07/24/18 04:30 Potassium 4.5 mmol/L (3.5-5.1) 07/24/18 04:30 Chloride 97 mmol/L (98-107) L 07/24/18 04:30 Carbon Dioxide 28.8 mmol/L (21-32) 07/24/18 04:30 BUN 46 mg/dL (7-18) H 07/24/18 04:30 Creatinine 3.57 mg/dL (0.55-1.02) H 07/24/18 04:30 Est GFR (MDRD) Af Amer 17 (>60) L 07/24/18 04:30 Est GFR (MDRD) Non-Af 14 (>60) L 07/24/18 04:30 Glucose 104 mg/dL (65-99) H 07/24/18 04:30 POC Glucose (mg/dL) 109 mg/dL (65-99) H 07/24/18 05:35 Calcium 7.4 mg/dL (8.5-10.1) L 07/24/18 04:30 Corrected Calcium 9.4 mg/dL (8.5-10.1) 07/24/18 04:30 Total Bilirubin 0.60 mg/dL (0.2-1.0) 07/24/18 04:30 AST 29 Units/L (15-37) 07/24/18 04:30 ALT 20 Units/L (12-78) 07/24/18 04:30 Alkaline Phosphatase 520 Units/L (46-116) H 07/24/18 04:30 Creatine Kinase 154 Units/L (26-192) 07/22/18 17:43 CK-MB (CK-2) 6.6 ng/mL (0-4.0) H* 07/22/18 17:43 CK/CKMB % Calc 4.3 % (<4) 07/22/18 17:43 Troponin I < 0.02 ng/mL (0-1.5) 07/22/18 17:43 Total Protein 6.4 g/dL (6.4-8.2) 07/24/18 04:30 Albumin 1.5 g/dL (3.4-5.0) L 07/24/18 04:30 Globulin 4.9 g/dL (2.5-4.5) H 07/24/18 04:30 Albumin/Globulin Ratio 0.3 Ratio (1.1-2.1) L 07/24/18 04:30 - Plan (1) Dyspnea Status: Acute Qualifiers: Dyspnea type: shortness of breath Qualified Code(s): R06.02 - Shortness of breath; R06.00 - Dyspnea, unspecified; R06.01 - Orthopnea Plan: CPAP, RESPIRATORY TREATMENTS, SUPPLEMENTAL OXYGEN, CONTINUE TO MONITOR (2) Pleural effusion Status: Acute Plan: NEB TX, CPAP, SUPPLEMENTAL OXYGEN, CONTINUE TO MONITOR (3) End-stage renal disease (ESRD) Status: Acute Plan: DIALYSIS ON M,W,F, CONTINUE TO MONITOR
[2018-07-24] MEDS ORDERED: DEMEROL INJ IVP ONE (17:40)
--- NOTE | 2018-07-24 18:01 | NM ---
VQ SCAN CLINICAL INDICATION: Shortness of breath and elevated D-dimer patient reportedly on dialysis. PROCEDURE: Following the inhalation of approximately 26.5 mCi Tc-99m DTPA aerosol, planar lung images were perfo rmed in multiple projections. Subsequently, following the intravenous administration of 5.75 mCi Tc-9 9m MAA, planar lung images were also obtained in multiple projections. COMPARISON: Chest x-ray 07/24/2018 FINDINGS: Clumping of radiotracer on ventilation phase centrally results in essentially nondiagnostic ventilati on phase. Perfusion lung images demonstrate no definite defects. IMPRESSION: 1. Markedly limited examination as above with no definite defect. As patient is reportedly on dialysi s, if there is significant concern for pulmonary embolism, a CT PE protocol could be performed and sc heduled prior to dialysis. Correlate with clinical suspicion and Wells score. It should be noted that a D-dimer may be positive in a multitude of acute and chronic settings including patients with chron ic renal disease. Reported By:
[2018-07-24] MEDS: SNACK - Diabetic Appropriate PO SCH (20:00)
[2018-07-24] MEDS: LIPITOR TAB 10 MG PO SCH (21:53)
[2018-07-25] MEDS: DUONEB 0.5 MG/3 MG NEB SCH ×6 (01:11→21:25)
[2018-07-25] MEDS: NS 1000 ML 1,000 ML IV SCH ×3 (05:19→14:54)
[2018-07-25 05:24] LABS: BASOPHILS % (AUTO) 0.6 % (0.2-1.0); EOSINOPHILS # (AUTO) 0.1 x10^3/uL (0.0-0.2); HEMATOCRIT 23.8 % (36.0-47.0); HEMOGLOBIN 8.1 g/dL (12.0-16.0); LYMPHOCYTES # (AUTO) 1.2 X10^3/uL (1.3-2.9); LYMPHOCYTES % (AUTO) 18.9 % (21.0-51.0); MEAN CORPUSCULAR HEMOGLOBIN 31.7 pg (27.0-34.0); MEAN CORPUSCULAR HGB CONC 34.2 g/dL (33.0-35.0); MEAN CORPUSCULAR VOLUME 92.6 fL (80.0-100.0); MEAN PLATELET VOLUME 7.6 fL (7.4-11.0); MONOCYTES # (AUTO) 0.6 x10^3/uL (0.3-0.8); MONOCYTES % (AUTO) 9.5 % (0.0-13.0); NEUTROPHILS # (AUTO) 4.6 x10^3/uL (2.2-4.8); PLATELET COUNT 257 X10^3/uL (150.0-450.0); RED BLOOD COUNT 2.57 X10^6/uL (3.5-5.4); RED CELL DISTRIBUTION WIDTH 15.9 % (11.6-16.5); WHITE BLOOD COUNT 6.6 X10^3/uL (3.6-10.0)
[2018-07-25 05:30] LABS: ALANINE AMINOTRANSFERASE 16 Units/L (12-78); ALBUMIN 1.6 g/dL (3.4-5.0); ALKALINE PHOSPHATASE 580 Units/L (46-116); ASPARTATE AMINO TRANSFERASE 29 Units/L (15-37); BLOOD UREA NITROGEN 28 mg/dL (7-18); CALCIUM 7.8 mg/dL (8.5-10.1); CARBON DIOXIDE 29.1 mmol/L (21-32); CHLORIDE 97 mmol/L (98-107); COR CA(FOR HYPOALB) 9.7 mg/dL (8.5-10.1); CREATININE 2.47 mg/dL (0.55-1.02); SODIUM 136 mmol/L (136-145); eGFR NON BLACK RACES 22 (>60)
[2018-07-25] MEDS: NEURONTIN TAB 600 MG PO SCH ×3 (06:16→21:15)
[2018-07-25] MEDS: RENAGEL PO SCH ×4 (06:17→18:48)
[2018-07-25] MEDS: CATAPRES TAB 0.2 MG PO SCH ×2 (10:44→22:07)
[2018-07-25] MEDS: KEPPRA TAB 500 MG PO SCH ×2 (10:44→21:15)
[2018-07-25] MEDS: KLONOPIN TAB 0.5 MG PO SCH ×2 (10:44→21:15)
[2018-07-25] MEDS: COLACE CAP 100 MG PO SCH ×2 (10:44→21:15)
[2018-07-25] MEDS: FERROUS GLUCONATE PO SCH ×2 (10:44→21:15)
[2018-07-25] MEDS: PROTONIX TAB 40 MG PO SCH (10:45)
[2018-07-25] MEDS: NORVASC TAB 10 MG PO SCH (10:45)
[2018-07-25] MEDS: MINOXIDIL PO SCH ×3 (10:45→22:07)
[2018-07-25] MEDS: LYRICA CAP 100 MG PO SCH (10:45)
[2018-07-25] MEDS: RANEXA PO SCH ×2 (10:45→21:15)
[2018-07-25] MEDS: VITAMIN C PO SCH (10:46)
[2018-07-25 10:52] LABS: ABG ALLEN TEST POS; FRACTIONATED INSPIRED OXYGEN 30
[2018-07-25 21:04] LABS: CKMB % 4.6 % (<4); TROPONIN I 0.62 ng/mL (0-1.5)
[2018-07-25 21:05] LABS: CREATINE KINASE MB 4.1 ng/mL (0-4.0)
[2018-07-25] MEDS: LIPITOR TAB 10 MG PO SCH (21:15)
[2018-07-25] MEDS: SNACK - Diabetic Appropriate PO SCH (22:07)
[2018-07-26] MEDS: DUONEB 0.5 MG/3 MG NEB SCH ×3 (00:43→09:04)
[2018-07-26 00:57] LABS: CKMB % 4.3 % (<4); CREATINE KINASE MB 3.2 ng/mL (0-4.0); TROPONIN I 0.54 ng/mL (0-1.5)
[2018-07-26 04:35] LABS: ABG BASE EXCESS 6.6 mmol/L (-2.0-2.0)
[2018-07-26 04:37] LABS: ABG HCO3 32.8 mmol/L (22-26); FRACTIONATED INSPIRED OXYGEN 40
[2018-07-26 05:26] LABS: BASOPHILS % (AUTO) 0.9 % (0.2-1.0); EOSINOPHILS % (AUTO) 0.9 % (0.9-2.9); HEMATOCRIT 20.4 % (36.0-47.0); LYMPHOCYTES # (AUTO) 1.8 X10^3/uL (1.3-2.9); LYMPHOCYTES % (AUTO) 34.4 % (21.0-51.0); MEAN CORPUSCULAR HEMOGLOBIN 32.1 pg (27.0-34.0); MEAN CORPUSCULAR HGB CONC 34.3 g/dL (33.0-35.0); MEAN CORPUSCULAR VOLUME 93.7 fL (80.0-100.0); MEAN PLATELET VOLUME 7.4 fL (7.4-11.0); MONOCYTES # (AUTO) 0.6 x10^3/uL (0.3-0.8); NEUTROPHILS # (AUTO) 2.6 x10^3/uL (2.2-4.8); NEUTROPHILS % (AUTO) 51.8 % (42.0-75.0); PLATELET COUNT 231 X10^3/uL (150.0-450.0); RED BLOOD COUNT 2.17 X10^6/uL (3.5-5.4); RED CELL DISTRIBUTION WIDTH 15.3 % (11.6-16.5); WHITE BLOOD COUNT 5.1 X10^3/uL (3.6-10.0)
[2018-07-26] MEDS: NEURONTIN TAB 600 MG PO SCH (05:46)
[2018-07-26 06:06] LABS: ALANINE AMINOTRANSFERASE 13 Units/L (12-78); ALBUMIN 1.3 g/dL (3.4-5.0); ALKALINE PHOSPHATASE 445 Units/L (46-116); ASPARTATE AMINO TRANSFERASE 22 Units/L (15-37); BLOOD UREA NITROGEN 34 mg/dL (7-18); CALCIUM 7.6 mg/dL (8.5-10.1); CARBON DIOXIDE 30.4 mmol/L (21-32); CHLORIDE 99 mmol/L (98-107); CKMB % 6.3 % (<4); COR CA(FOR HYPOALB) 9.8 mg/dL (8.5-10.1); CREATINE KINASE 49 Units/L (26-192); CREATINE KINASE MB 3.1 ng/mL (0-4.0); CREATININE 3.07 mg/dL (0.55-1.02); SODIUM 136 mmol/L (136-145); TOTAL PROTEIN 5.6 g/dL (6.4-8.2); TROPONIN I 0.53 ng/mL (0-1.5); eGFR NON BLACK RACES 17 (>60)
[2018-07-26 06:42] LABS: PLATELET MORPHOLOGY COMMENT NORMAL (NORMAL)
[2018-07-26 06:43] LABS: HYPOCHROMASIA SLIGHT; TARGET CELLS SLIGHT
[2018-07-26] MEDS: RENAGEL PO SCH ×2 (06:54→08:26)
[2018-07-26] MEDS: NS 1000 ML 1,000 ML IV SCH (07:13)
[2018-07-26] MEDS ORDERED: D50W ABBOJECT SYR IVP NR ×2 (07:45→08:00)
[2018-07-26] MEDS: RANEXA PO SCH (08:25)
[2018-07-26] MEDS: MINOXIDIL PO SCH (08:25)
[2018-07-26] MEDS: CATAPRES TAB 0.2 MG PO SCH (08:25)
[2018-07-26] MEDS: KEPPRA TAB 500 MG PO SCH (08:26)
[2018-07-26] MEDS: COLACE CAP 100 MG PO SCH (08:26)
[2018-07-26] MEDS: KLONOPIN TAB 0.5 MG PO SCH (08:26)
[2018-07-26] MEDS: LYRICA CAP 100 MG PO SCH (08:26)
[2018-07-26] MEDS: PROTONIX TAB 40 MG PO SCH (08:26)
[2018-07-26] MEDS: VITAMIN C PO SCH (08:26)
[2018-07-26] MEDS: FERROUS GLUCONATE PO SCH (08:26)
[2018-07-26] MEDS: NORVASC TAB 10 MG PO SCH (08:26)
[2018-07-26 12:41] VITALS: BP 158/63
--- NOTE | 2018-09-01 22:31 | PCM.PROG ---
Progress Note - Progress Note for Day of Date of Exam: 07/25/18 - Subjective Subjective: WAS ADMITTED ON 07/22/18 FOR COMPLAINTS OF SHORTNESS OF BREATH. TODAY, SHE IS ALERT AND ORIENTED, LYING IN BED ON MORNING ROUNDS. SHE CONTINUES WITH COMPLAINTS OF SHORTNESS OF BREATH, BUT REPORTS SLIGHT IMPROVEMENT SINCE YESTERDAY. ON EXAMINATION, HEART IS REGULAR IN RATE AND RHYTHM. BILATERAL LUNGS ARE NOTED WITH DIMINISHED LUNG SOUNDS THROUGHOUT. ABDOMEN IS ROUND, SOFT, AND NON-TENDER WITH NORMAL BOWEL SOUNDS NOTED IN ALL QUADRANTS. SHE IS NOTED WITH A RIGHT BELOW THE KNEE AMPUTATION, LEFT LEG NOTED WITH TRACE EDEMA. HER VITALS THIS MORNING ARE 98.0-94-20-100%BIPAP-185/88. LABS WERE OBTAINED. ABNORMAL LAB VALUES INCLUDE THE FOLLOWING: RBC 2.57, HGB 8.1, HCT 23.8, CHLORIDE 97, BUN 28, CREATININE 2.47, GLUCOSE 106, CALCIUM 7.8, ALK PHOS 580, ALBUMIN 1.6. ABG REVEALED: PH 7.410, PC02 52.0, P02 63.0, HC03 33.0, BASE EXCESS 7.0. TODAYS CHEST XRAY REVEALED: MARKED CARDIOMEGALY WITH PULMONARY VENOUS CONGESTION AND MILD INTERSTITIAL EDEMA. IMPROVING AERATION IN THE RIGHT LOWER LOBE HOWEVER SUBSEGMENTAL ATELECTASIS REMAINS. LEFT PLEURAL EFFUSION. SHE IS CURRENTLY RECEIVING NORMAL SAINE AT 75ML/HR, NEB TX, AND IS UTILIZING THE CPAP. OTHERWISE, WILL CONTINUE WITH CURRENT PLAN OF CARE TODAY. WE WILL FOLLOW UP WITH AM LABS AND CHEST XRAY AND CONTINUE TO MONITOR PATIENT. - Past Medical Family Social History Past Med/Fam/Surg Hx: No changes since H&P Allergies: Allergies No Known Drug Allergies Allergy (Verified 05/31/18 11:40) - Review of Systems ROS: No change since H&P - Vital Signs and I&O's Vital Signs: Temperature 98.3 F Pulse Rate [Apical] 73 Pulse Rate 76 Respiratory Rate 12 Blood Pressure [Right Arm] 158/63 Blood Pressure [Left Arm] 231/107 Blood Pressure 126/62 O2 Sat by Pulse Oximetry 93 - Physical Exam Oriented: Normal Eyes: Normal Ear: Normal Nose: Normal Throat: Normal Respiratory: Generalized, Diminished Cardiovascular: Normal, Edema (LLE TRACE EDEMA ). negative: S3, S4 : Normal Auscultation: Bowel Sounds: Normal Tenderness: Normal Skin: Normal Musculoskeletal: Normal Psychiatric: Normal Mood Description: Calm Affect: Normal Speech Pattern: Clear - Laboratory and Diagnostics Result Diagrams: 07/26/18 03:55 07/26/18 03:55 Labs: Laboratory WBC 5.1 X10^3/uL (3.6-10.0) 07/26/18 03:55 RBC 2.17 X10^6/uL (3.5-5.4) L 07/26/18 03:55 Hgb 7.0 g/dL (12.0-16.0) L 07/26/18 03:55 Hct 20.4 % (36.0-47.0) L 07/26/18 03:55 MCV 93.7 fL (80.0-100.0) 07/26/18 03:55 MCH 32.1 pg (27.0-34.0) 07/26/18 03:55 MCHC 34.3 g/dL (33.0-35.0) 07/26/18 03:55 RDW 15.3 % (11.6-16.5) 07/26/18 03:55 Plt Count 231 X10^3/uL (150.0-450.0) 07/26/18 03:55 Plt Count Comment Adequate (ADEQUATE) 07/26/18 03:55 MPV 7.4 fL (7.4-11.0) 07/26/18 03:55 Neut % (Auto) 51.8 % (42.0-75.0) 07/26/18 03:55 Lymph % (Auto) 34.4 % (21.0-51.0) 07/26/18 03:55 [place] % (Auto) 12.0 % (0.0-13.0) 07/26/18 03:55 Eos % (Auto) 0.9 % (0.9-2.9) 07/26/18 03:55 Baso % (Auto) 0.9 % (0.2-1.0) 07/26/18 03:55 Neut # (Auto) 2.6 x10^3/uL (2.2-4.8) 07/26/18 03:55 Lymph # (Auto) 1.8 X10^3/uL (1.3-2.9) 07/26/18 03:55 [place] # (Auto) 0.6 x10^3/uL (0.3-0.8) 07/26/18 03:55 Eos # (Auto) 0.0 x10^3/uL (0.0-0.2) 07/26/18 03:55 Baso # (Auto) 0.0 X10^3/uL (0.0-0.1) 07/26/18 03:55 Absolute Nucleated RBC 0.1 /100WBC 07/26/18 03:55 Plt Morphology Comment Normal (NORMAL) 07/26/18 03:55 RBC Morphology Abnormal (NORMAL) A 07/26/18 03:55 Hypochromasia Slight A 07/26/18 03:55 Target Cells Slight A 07/26/18 03:55 INR Target Range - 07/22/18 17:43 INR 1.19 (0.8-1.3) 07/22/18 17:43 APTT 47.4 SECONDS (22.9-36.5) H 07/22/18 17:43 PTT Comment - 07/22/18 17:43 D-Dimer 2020 ng/mL (0-400) H* 07/22/18 17:43 Sample Site Rbra 07/26/18 04:20 ABG pH 7.400 (7.35-7.45) 07/26/18 04:20 ABG pCO2 53.0 mmHg (35.0-45.0) H* 07/26/18 04:20 ABG pO2 115.0 mmHg (80.0-100.0) H 07/26/18 04:20 ABG HCO3 32.8 mmol/L (22-26) H* 07/26/18 04:20 ABG O2 Saturation 99.0 % (90-100) 07/26/18 04:20 ABG Base Excess 6.6 mmol/L (-2.0-2.0) H 07/26/18 04:20 Daniel Test Na 07/26/18 04:20 A-a Gradient 104.0 mmHg 07/26/18 04:20 FiO2 40 07/26/18 04:20 Blood Gas Comments Eboni abg well-mtf 07/26/18 04:20 Sodium 136 mmol/L (136-145) 07/26/18 03:55 Corrected Sodium TNP 07/26/18 03:55 Potassium 4.1 mmol/L (3.5-5.1) 07/26/18 03:55 Chloride 99 mmol/L (98-107) 07/26/18 03:55 Carbon Dioxide 30.4 mmol/L (21-32) 07/26/18 03:55 BUN 34 mg/dL (7-18) H 07/26/18 03:55 Creatinine 3.07 mg/dL (0.55-1.02) H 07/26/18 03:55 Est GFR (MDRD) Af Amer 21 (>60) L 07/26/18 03:55 Est GFR (MDRD) Non-Af 17 (>60) L 07/26/18 03:55 Glucose 64 mg/dL (65-99) L 07/26/18 03:55 POC Glucose (mg/dL) 89 mg/dL (65-99) 07/26/18 11:25 Calcium 7.6 mg/dL (8.5-10.1) L 07/26/18 03:55 Corrected Calcium 9.8 mg/dL (8.5-10.1) 07/26/18 03:55 Total Bilirubin 0.60 mg/dL (0.2-1.0) 07/26/18 03:55 AST 22 Units/L (15-37) 07/26/18 03:55 ALT 13 Units/L (12-78) 07/26/18 03:55 Alkaline Phosphatase 445 Units/L (46-116) H 07/26/18 03:55 Creatine Kinase 49 Units/L (26-192) 07/26/18 03:55 CK-MB (CK-2) 3.1 ng/mL (0-4.0) 07/26/18 03:55 CK/CKMB % Calc 6.3 % (<4) 07/26/18 03:55 Troponin I 0.53 ng/mL (0-1.5) 07/26/18 03:55 Total Protein 5.6 g/dL (6.4-8.2) L 07/26/18 03:55 Albumin 1.3 g/dL (3.4-5.0) L 07/26/18 03:55 Globulin 4.3 g/dL (2.5-4.5) 07/26/18 03:55 Albumin/Globulin Ratio 0.3 Ratio (1.1-2.1) L 07/26/18 03:55 - Plan (1) Dyspnea Status: Acute Qualifiers: Dyspnea type: shortness of breath Qualified Code(s): R06.02 - Shortness of breath; R06.00 - Dyspnea, unspecified; R06.01 - Orthopnea Plan: CPAP, RESPIRATORY TREATMENTS, SUPPLEMENTAL OXYGEN, CONTINUE TO MONITOR (2) Pleural effusion Status: Acute Plan: NEB TX, CPAP, SUPPLEMENTAL OXYGEN, CONTINUE TO MONITOR (3) End-stage renal disease (ESRD) Status: Acute Plan: DIALYSIS ON M,W,F, CONTINUE TO MONITOR
--- NOTE | 2018-09-05 23:13 | DR.CARTERD ---
- Discharge Summary for: Discharge Summary for Date of:: 07/26/18 - Admission Date Date of Admission: 07/22/18 - Admission Diagnoses Admission Diagnosis: (1) End-stage renal disease (ESRD) (2) Dyspnea (2) Shortness of breath - Discharge Date Discharge Date: 07/26/18 - Discharge Diagnoses Discharge Diagnosis: (1) End-stage renal disease (ESRD) (2) Dyspnea (3) Pleural effusion - Hospital Course Hospital Course: DAY ONE, MS. SHAH IS A 53 YEAR OLD RESIDENT OF [facility] IN [place], [place]. SHE PRESENTED TO THE ER FROM DIALYSIS WITH REPORTS OF WEAKNESS AND SHORTNESS OF BREATH. SHE REPORTED BECOMING SHORT OF BREATH WHILE SHE WAS RECEIVING DIALYSIS. SHE DENIED COUGH OR FEVER. PAST MEDICAL HISTORY INCLCUDES ANEMIA, ANXIETY, CHF, CAD, DM, DYSLIPIDEMIA, GERD, HTN, KIDNEY DISEASE, SEIZURES. ON ARRIVAL, VITALS WERE 99.2-69-20-97%-126/62. LABS WERE OBTAINED. ABNORMAL LAB VALUES INCLUDED THE FOLLOWING: RBC 2.49, HGB 7.9, HCT 23.0, D-DIMER 2020, POTASSIUM 3.4, BUN 24, CREATININE 2.34, GLUCOSE 136, CALCIUM 7.1, ALK PHOS 484, CK-MB 6.6, TOTAL PROTEIN 6.3, ALBUMIN 1.6. ABG WAS OBTAINED AND REVEALED: PH 7.460, PC02 50.0, P02 68.0, HC03 35.6, BASE EXCESS 10.2. A BRAIN CT WAS OBTAINED AND REVEALED: No acute intracranial process can be identified. Mild generalized atrophy with findings consistent with changes of chronic small vessel ischemic disease. Remote right-sided infarct as noted above. A CHEST XRAY WAS OBTAINED AND REVEALED: Right-sided pleural effusion with subsegmental atelectasis in the right base. Otherwise, no focal infiltrate can be identified. Cardiomegaly that appear stable compared to prior examination. EKG REVEALED: SINUS RHYTHM WITH HR 69. SHE WAS ADMITTED TO THE HOSPITAL FOR FURTHER EVALUATION AND TREATMENT OF DYSPNEA, ELEVATED D-DIMER, AND RENAL FAILURE. SHE WAS STARTED ON NEB TX, NORMAL SALINE AT 75ML/HR, AND SLIDING SCALE INSULIN. WE FOLLOWED UP WITH AM LABS AND CONTINUED TO MONITOR PATIENT. DAY TWO, SHE WAS ALERT AND ORIENTED, LYING IN BED ON MORNING ROUNDS. SHE CONTINUED WITH COMPLAINTS OF SHORTNESS OF BREATH. PATIENT REPORTED THAT SYMPTOMS STARTED WHILE SHE WAS RECEIVING DIALYSIS. SHE DENIED COUGH OR FEVER. ON EXAMINATION, HEART WAS REGULAR IN RATE AND RHYTHM. BILATERAL LUNGS WERE NOTED WITH DIMINISHED LUNG SOUNDS THROUGHOUT. ABDOMEN WAS ROUND, SOFT, AND NON-TENDER WITH NORMAL BOWEL SOUNDS NOTED IN ALL QUADRANTS. SHE WAS NOTED WITH A RIGHT BELOW THE KNEE AMPUTATION, LEFT LEG NOTED WITH TRACE EDEMA. HER VITALS THIS MORNING WERE 98.6-74-20-100%-102/51. LABS WERE OBTAINED. ABNORMAL LAB VALUES INCLUDED THE FOLLOWING: RBC 2.41, HGB 7.6, HCT 22.2, D-DIMER 2020, BUN 32, CREATININE 2.69, GLUCOSE 103, CALCIUM 7.2, ALK PHOS 448, TOTAL PROTEIN 5.8, ALBUMIN 1.4. ABG REVEALED PH 7.460, PC02 50.0, P02 68.0, HC03 35.6, BASE EXCESS 10.2. CHEST XRAY ON ADMISSION REVEALED A RIGHT SIDED PLEURAL EFFUSION WITH SUBSEGMENTAL ATELECTASIS IN THE RIGHT BASE. SHE WAS RECEIVING NORMAL SAINE AT 75ML/HR, NEB TX, AND HOME MEDICATIONS WERE RESUMED. TODAY, WE HELD HER BLOOD PRESSURE MEDICATIONS DUE TO HYPOTENSION. WE ORDERED FOR HER TO WEAR THE CPAP THROUGHOUT THE DAY. WE FOLLOWED UP WITH AM LABS AND CHEST XRAY AND CONTINUED TO MONITOR PATIENT. DAY THREE, SHE WAS ALERT AND ORIENTED, LYING IN BED ON MORNING ROUNDS. SHE CONTINUED WITH COMPLAINTS OF SHORTNESS OF BREATH, BUT REPORTS SLIGHT IMPROVEMENT SINCE YESTERDAY. ON EXAMINATION, HEART WAS REGULAR IN RATE AND RHYTHM. BILATERAL LUNGS WERE NOTED WITH DIMINISHED LUNG SOUNDS THROUGHOUT. ABDOMEN WAS ROUND, SOFT, AND NON-TENDER WITH NORMAL BOWEL SOUNDS NOTED IN ALL QUADRANTS. SHE WAS NOTED WITH A RIGHT BELOW THE KNEE AMPUTATION, LEFT LEG NOTED WITH TRACE EDEMA. HER VITALS THIS MORNING WERE 98.2-83-20-99%-135/68. LABS WERE OBTAINED. ABNORMAL LAB VALUES INCLUDED THE FOLLOWING: RBC 2.50, RBC 7.8, HCT 23.2, SODIUM 135, CHLORIDE 97, BUN 46, CREATININE 3.57, GLUCOSE 104, CALCIUM 7.4, ALK PHOS 520, ALBUMIN 1.5. ABG REVEALED: PH 7.440, PC02 46.0, P02 66.0, HC03 31.2, BASE EXCESS 6.1. TODAYS CHEST XRAY REVEALED: Persistent cardiomegaly without definite congestive heart failure. Improving right pleural effusion and better inflation of the right lower lobe when compared with the prior examination. Left pleural effusion. SHE RECEIVED NORMAL SAINE AT 75ML/HR, NEB TX, AND IS UTILIZING THE CPAP. TODAY, SHE RECEIVED DIALYSIS AND THEN RETURN TO THE HOSPITAL. WE CONTINUED WITH CURRENT PLAN OF CARE TODAY. WE FOLLOWED UP WITH AM LABS AND CHEST XRAY AND CONTINUED TO MONITOR PATIENT. DAY FOUR, SHE WAS ALERT AND ORIENTED, LYING IN BED ON MORNING ROUNDS. SHE CONTINUED WITH COMPLAINTS OF SHORTNESS OF BREATH, BUT REPORTED SLIGHT IMPROVEMENT SINCE YESTERDAY. ON EXAMINATION, HEART WAS REGULAR IN RATE AND RHYTHM. BILATERAL LUNGS WERE NOTED WITH DIMINISHED LUNG SOUNDS THROUGHOUT. ABDOMEN WAS ROUND, SOFT, AND NON-TENDER WITH NORMAL BOWEL SOUNDS NOTED IN ALL QUADRANTS. SHE WAS NOTED WITH A RIGHT BELOW THE KNEE AMPUTATION, LEFT LEG NOTED WITH TRACE EDEMA. HER VITALS THIS MORNING WERE 98.0-94-20-100%BIPAP-185/88. LABS WERE OBTAINED. ABNORMAL LAB VALUES INCLUDED THE FOLLOWING: RBC 2.57, HGB 8.1, HCT 23.8, CHLORIDE 97, BUN 28, CREATININE 2.47, GLUCOSE 106, CALCIUM 7.8, ALK PHOS 580, ALBUMIN 1.6. ABG REVEALED: PH 7.410, PC02 52.0, P02 63.0, HC03 33.0, BASE EXCESS 7.0. TODAYS CHEST XRAY REVEALED: MARKED CARDIOMEGALY WITH PULMONARY VENOUS CONGESTION AND MILD INTERSTITIAL EDEMA. IMPROVING AERATION IN THE RIGHT LOWER LOBE HOWEVER SUBSEGMENTAL ATELECTASIS REMAINS. LEFT PLEURAL EFFUSION. SHE RECEIVED NORMAL SAINE AT 75ML/HR, NEB TX, AND IS UTILIZING THE CPAP. WE CONTINUED WITH CURRENT PLAN OF CARE TODAY. WE FOLLOWED UP WITH AM LABS AND CHEST XRAY AND CONTINUED TO MONITOR PATIENT. DAY FIVE, SHE WASS ALERT AND ORIENTED, LYING IN BED ON MORNING ROUNDS. SHE CONTINUED WITH COMPLAINTS OF SHORTNESS OF BREATH. LABS REVIEWED, VITALS REVIEWED, AND WE DISCUSSED TRANSFER TO A [facility] WITH PATIENT. SHE WAS IN AGREEMENT. PATIENT TRANSFERRED TO A [facility] TODAY FOR FURTHER EVALUATION AND TREATMENT. FAMILY WAS NOTIFIED OF TRANSFER. - Discharge Medications Discharge Medications: Home Medication List acetaminophen 20 ml PO Q4H PRN 07/22/18 [History] acetaminophen [Acephen] 650 mg MN Q4H PRN 07/22/18 [History] albuterol sulfate 1 amp INHALATION Q4H PRN 07/22/18 [History] amlodipine 5 mg PO DAILY 07/22/18 [History] ascorbic acid (vitamin C) 500 mg PO DAILY 07/22/18 [History] aspirin 81 mg PO DAILY 07/22/18 [History] atorvastatin 40 mg PO HS 07/22/18 [History] bisacodyl [Dulcolax (bisacodyl)] 10 mg PO DAILY PRN 07/22/18 [History] bisacodyl [Dulcolax (bisacodyl)] 10 mg MN DAILY PRN 07/22/18 [History] carboxymethylcellulose sodium [Lubricant Eye Drops] 2 drp OPHTHALMIC (EYE) QID PRN 07/22/18 [History] clonidine HCl 0.3 mg PO QID 07/22/18 [History] clopidogrel 75 mg PO DAILY 07/22/18 [History] diphenhydramine HCl [Benadryl] 25 mg PO Q6H PRN 07/22/18 [History] docusate sodium [Colace] 100 mg PO BID 07/22/18 [History] furosemide 80 mg PO DAILY 07/22/18 [History] hydralazine 100 mg PO TID 07/22/18 [History] hydrocodone-acetaminophen 1 tab PO Q4H PRN 07/22/18 [History] insulin lispro [Humalog U-100 Insulin] 1 inj SUBCUT ACHS PRN 07/22/18 [History] ipratropium-albuterol 1 ea INHALATION Q6H PRN 07/22/18 [History] isosorbide mononitrate 20 mg PO DAILY 07/22/18 [History] lorazepam 1 mg PO Q6H PRN 07/22/18 [History] magnesium hydroxide [Milk of Magnesia] 30 ml PO DAILY PRN 07/22/18 [History] metoprolol succinate 25 mg PO DAILY 07/22/18 [History] minoxidil 10 mg PO BID 07/22/18 [History] ondansetron HCl 8 mg PO Q8H PRN 07/22/18 [History] pantoprazole 40 mg PO BID 07/22/18 [History] pregabalin [Lyrica] 100 mg PO DAILY 07/22/18 [History] ranolazine [Ranexa] 500 mg PO BID 07/22/18 [History] sevelamer carbonate 800 mg PO TID 07/22/18 [History] vit B complex with C #[id number] 1 tab PO DAILY 07/22/18 [History] acetaminophen 650 mg PO Q4H PRN 07/23/18 [History] ferrous sulfate 325 mg PO BID 07/23/18 [History] levetiracetam [Keppra] 500 mg PO BID 07/23/18 [History] Prescriptions: - Discharge Disposition Discharge Disposition: PATIENT TRANSFERRED TO A [facility] FOR FURTHER EVALUATION AND TREATMENT.
== END 2018-07-26 12:40 | disposition short-term general hospital (02) | DRG 204 ==
LOC: ER 17:05 → MED/SURG 17:05 → ICU 07-25 14:05
PROVIDERS: ADMIT Internal Medicine; ATTEND Internal Medicine
DX: I51.7 Cardiomegaly; I95.89 Other hypotension; R79.1 Abnormal coagulation profile; I10 Essential (primary) hypertension; R06.02 Shortness of breath; K21.9 Gastro-esophageal reflux disease without esophagitis; I25.10 Atherosclerotic heart disease of native coronary artery without angina pectoris; G40.89 Other seizures; N18.6 End stage renal disease; R60.0 Localized edema; Z89.511 Acquired absence of right leg below knee; R94.4 Abnormal results of kidney function studies; J90 Pleural effusion, not elsewhere classified; R41.82 Altered mental status, unspecified; R94.31 Abnormal electrocardiogram [ECG] [EKG]; E78.2 Mixed hyperlipidemia; Z99.2 Dependence on renal dialysis
CPT/HCPCS: 36415; 36600; 70450; 71010; 71045; 78582; 80053; 82550; 82553; 82803; 84484; 85025; 85378; 85610; 85730; 93005; 94640; 94660; 94760; 96365; 99284; A4222; A4618; A7030; G0378; J2175; J3490; J7030; J7613; J7620